=== PATIENT | male | born 1955 | race Caucasian/White ===

== ENCOUNTER 2021-07-10 11:23 | Emergency (ER) | payer OTHER ==
[2021-07-10] MEDS ORDERED: Sodium Chloride 0.9% 10 ML Syringe FLUSH PRN (11:27)
[2021-07-10] MEDS: Sodium Chloride 0.9% 1,000 ML IV ONE (11:56)
[2021-07-10] MEDS: cefTRIAXone 2 GM Vial IV ONE (11:56)
[2021-07-10 12:14] LABS: CHLORIDE,CL 98 mmol/L (98-107); SODIUM,NA 135 mmol/L (136-145)
[2021-07-10 12:17] LABS: ANION GAP 15.2 mmol/L (5-15)
== END 2021-07-10 16:00 | disposition short-term general hospital (02) ==
LOC: VM.ED 11:23
DX: R41.82 Altered mental status, unspecified (principal); N39.0 Urinary tract infection, site not specified; J44.9 Chronic obstructive pulmonary disease, unspecified; I25.2 Old myocardial infarction; N18.9 Chronic kidney disease, unspecified; D63.1 Anemia in chronic kidney disease; Z79.01 Long term (current) use of anticoagulants; Z20.822 Contact with and (suspected) exposure to COVID-19
CPT/HCPCS: 36415; 70450; 71045; 80053; 81001; 83605; 84484; 85025; 87040; 87077; 87635; 94760; 96374; 99284; 99285; J0696; J7030; 87186; U0002

== ENCOUNTER 2021-07-31 13:11 | Emergency (ER) | payer OTHER ==
[2021-07-31] MEDS ORDERED: Sodium Chloride 0.9% 10 ML Syringe FLUSH PRN (13:22)
[2021-07-31] MEDS ORDERED: Furosemide 40 MG/4 ML VIAL IV ONE (13:59)
[2021-07-31 14:09] LABS: PTT,PARTIAL THROMBOPLSTIN TIME 24.3 SEC (20.5-30.9)
[2021-07-31 14:22] LABS: PCO2 ARTERIAL,POC 149 mmHg (35-48)
[2021-07-31 14:23] LABS: CHLORIDE,CL 102 mmol/L (98-107); SODIUM,NA 139 mmol/L (136-145)
[2021-07-31 14:32] LABS: ANION GAP 13.5 mmol/L (5-15)
[2021-07-31] MEDS ORDERED: cefTRIAXone 2 GM Vial IVPUSH ONE (14:46)
[2021-07-31] MEDS ORDERED: Rocuronium 50 MG/5 ML Vial ONE (14:56)
[2021-07-31] MEDS ORDERED: Succinylcholine 200 MG/10 ML MDV ONE (14:56)
[2021-07-31] MEDS ORDERED: Midazolam 1 MG/ML 2 ML SDV ONE (14:57)
[2021-07-31] MEDS ORDERED: methylPREDNISolone Sodium Succinate 125 MG/2 ML SDV IVPUSH ONE (14:58)
[2021-07-31] MEDS ORDERED: Norepinephrine 4 MG/4 ML SDV ONE (15:24)
[2021-07-31] MEDS ORDERED: Chlorhexidine Gluconate 0.12% Oral Rinse 15 ML Cup ONE (18:17)
== END 2021-07-31 15:50 ==
LOC: VM.ED 13:11
DX: J44.1 Chronic obstructive pulmonary disease with (acute) exacerbation (principal); J96.90 Respiratory failure, unspecified, unspecified whether with hypoxia or hypercapnia; E87.2 Acidosis; I25.2 Old myocardial infarction; Z79.01 Long term (current) use of anticoagulants
CPT/HCPCS: 31500; 36415; 36600; 51702; 71045; 80053; 81001; 82803; 83605; 83735; 83880; 84100; 84484; 85025; 85610; 85730; 86140; 93005; 93010; 94002; 94660; 96365; 96375; 99285; 99285-25; J0330; J0696; J1940; J2250; J2930; U0002